=== PATIENT | female | born 1960 | race Caucasian/White ===

== ENCOUNTER 2018-02-10 15:36 | Emergency (ER) | payer SELFPAY ==
[2018-02-10] MEDS ORDERED: ASPIRIN 81 MG CHEW TAB PO ONE (15:43)
--- NOTE | 2018-02-10 15:43 | ED Physician Documentation ---
Chest Pain - HISTORIAN Historian: patient - HPI Stated Complaint: chest pain Chief Complaint: Chest Pain Onset: other (all together feeling bad x 3 weeks ) Timing: still present Duration: waxing, waning Last known Well Date: 01/02/18 Last Known Well Time: 09:00 Last known Well Code/Unknown Code: Unknown Context: emotional upset, activity, exertion Severity: severe Quality: pressure, sharp Chest Pain Radiation: jaw (right jaw ) Chest Pain Signs/Symptoms: nausea, diaphoresis, dizziness, dyspnea, tachypnea, tachycardia, palpitations, weakness Worsened By: movement Relieved By: rest, other (asprin ) Further Comments: yes (she reports starting with "not feeling well" about 3 weeks ago. She states then over the last few hours she felt increasing chest pain and shortness of breath. She states this was aftere walking in [place] so she arrived here for the chest pain. She states she "just doesnt feel right" She is tearful and anxious. She has no other injurries. No fever. She did recently (2 weeks ago ) fly home from another country) - ROS CONST: none GI/: nausea - PAST HX NC risk factors: no pertinent history DVT/PE Risk Factors: other (recent travel ) GI disease: none Lung disease: none Surgeries/Procedures: none Immunizations: UTD Allergies/Adverse Reactions: Allergies Allergy/AdvReac Type Severity Reaction Status Date / Time codeine Allergy Intermediate Vomiting Verified 02/10/18 16:53 - SOCIAL HX Smoking History: non-smoker Alcohol Use: none Drug Use: none - FAMILY HX Family HX: CAD under 55 - REVIEWED ASSESSMENTS Nursing Assessment Reviewed: Yes Vitals Reviewed: Yes Progress - Progress Progress: 1745: notify pt and spouse of results and plan they are aware and agreeable DG ED Results Lab/Radiology - Radiology Radiology Impressions: Examination: Portable chest History: Evaluate lungs. CHEST PAIN IN THE LAST WEEK, WORSENING (Hx) Comparison exam: None provided. Findings: Single view of the chest demonstrates a normal cardiac and mediastinal silhouette. Lung rowland without focal infiltrate. No blunting of the costophrenic margins. Osseous structures are appropriate for age. Impression: No acute pulmonary process. Electronically signed on Feb 10, 2018 4:24:38 PM MULTIPLE DRUM SANDER HELPER by: Topher Domínguez CT CHEST W/ PE PROTOCOL. ELEVATED D-DIMER, CHEST PAIN, SHORTNESS OF BREATH (DICOM Hx) TECHNIQUE: 2.5 mm contiguous axial images of the chest with contrast. Sagittal and coronal reconstructions. FINDINGS: There is enhancing 1 cm nodule in the right lobe of the thyroid gland. Bilateral breast implants are present. There is no hilar or mediastinal mass. No pulmonary emboli are identified. The gallbladder has been removed. Adrenal glands are unremarkable Lung windows show no acute pathology. There is no pleural effusion. Lung rowland are hyperinflated. There is thoracic spondylosis. IMPRESSION: 1 cm enhancing nodule in the right lobe of the thyroid gland Hyperinflated lungs No evidence of acute pulmonary embolism. Electronically signed on Feb 10, 2018 5:25:04 PM MULTIPLE DRUM SANDER HELPER by: Bert Fernandez Chest Pain Physical Exam - EXAM General Appearance: moderate distress EENT: eye inspection normal, no signs of dehydration Neck: nml inspection Respiratory: no resp. distress, chest non-tender, nml breath sounds CVS: reg. rate & rhythm, no murmur, pulses equal Abdomen: soft, normal bowel sounds, no distension, non-tender Skin: warm/dry, normal color Extremities: non-tender, normal range of motion, no evidence of injury, no edema Neuro: oriented X3 Discharge Clincal Impression: Tachycardia Referrals: Primary Doctor,No [Primary Care Provider] - 2 Days Additional Instructions: 1. Follow up with PCP in 2 days 2. Holter on 3. Rest when you body says to rest 4. Call 911 or return to ER for any concerns Condition: Stable Disposition: 01 HOME, SELF-CARE Decision to Admit: NO Date of Decison to Admit: 02/10/18 Decision Time: 18:50
[2018-02-10 16:09] LABS: MEAN CORPUSCULAR HEMOGLOBIN 26.7 pg (28.0-34.0)
[2018-02-10 16:10] LABS: BASOPHILS % 0.5 (0.0-1.5); EOSINOPHILS % 1.5 % (0.0-6.8); MONOCYTES % 8.6 % (0.0-11.0); NEUTROPHILS # 6.2 # k/uL (1.4-7.7)
[2018-02-10 16:21] LABS: eGFR (Non-African) > 60
[2018-02-10] MEDS ORDERED: 0.9 % SODIUM CHLORIDE 1,000 ML IV ONE (16:41)
[2018-02-10 17:10] VITALS: BP 177/92
--- NOTE | 2018-02-11 03:10 | Diagnostic Imaging Report ---
[place] [facility] [id number] [facility] [address] [place], [place]. [address] Report Submission Date: Feb 10, 2018 4:24:38 PM MINE CAR DISPATCHER Patient Study Name: THOMAS GARDNER Date: Feb 10, 2018 3:48:30 PM MINE CAR DISPATCHER Modality Type: DX Gender: F Description: CHEST : 60 Institution: [facility] Physician: [place] Examination: Portable chest History: Evaluate lungs. CHEST PAIN IN THE LAST WEEK, WORSENING (Hx) Comparison exam: None provided. Findings: Single view of the chest demonstrates a normal cardiac and mediastinal silhouette. Lung rowland without focal infiltrate. No blunting of the costophrenic margins. Osseous structures are appropriate for age. Impression: No acute pulmonary process. Electronically signed on Feb 10, 2018 4:24:38 PM MINE CAR DISPATCHER by: Topher RODGERS
--- NOTE | 2018-02-11 03:11 | Diagnostic Imaging Report ---
[place] [facility] [id number] [facility] [address] [place], [place]. [address] Report Submission Date: Feb 10, 2018 5:25:04 PM CLOTHES SEPARATOR Patient Study Name: THOMAS GARDNER Date: Feb 10, 2018 4:54:22 PM CLOTHES SEPARATOR Modality Type: CT\SR Gender: F Description: CT PE CHEST : 60 Institution: [facility] Physician: SCOT SPAIN CT chest with contrast Date of study: February 04, 2018 CLINICAL HISTORY: CT CHEST W/ PE PROTOCOL. ELEVATED D-DIMER, CHEST PAIN, SHORTNESS OF BREATH (Hx) / ITS.REASON Elevated d dimer chest pain shortness of air Note time : 02/10/2018 6:07:26 PM User : Teresa Dunbar CT CHEST W/ PE PROTOCOL. ELEVATED D-DIMER, CHEST PAIN, SHORTNESS OF BREATH (DICOM Hx) TECHNIQUE: 2.5 mm contiguous axial images of the chest with contrast. Sagittal and coronal reconstructions. FINDINGS: There is enhancing 1 cm nodule in the right lobe of the thyroid gland. Bilateral breast implants are present. There is no hilar or mediastinal mass. No pulmonary emboli are identified. The gallbladder has been removed. Adrenal glands are unremarkable Lung windows show no acute pathology. There is no pleural effusion. Lung rowland are hyperinflated. There is thoracic spondylosis. IMPRESSION: 1 cm enhancing nodule in the right lobe of the thyroid gland Hyperinflated lungs No evidence of acute pulmonary embolism. Electronically signed on Feb 10, 2018 5:25:04 PM CLOTHES SEPARATOR by: Bert RODGERS
== END 2018-02-10 18:45 | disposition home or self-care (01) ==
LOC: ED 15:36
DX: R00.0 Tachycardia, unspecified (principal)
CPT/HCPCS: 36415; 71045; 71275; 80053; 84439; 84443; 84481; 84484; 85025; 85379; 93005; 96365; 99283; 99285; J7030; Q9967; S1016

== ENCOUNTER 2018-02-16 12:43 | Outpatient (CLI) | payer SELFPAY ==
--- NOTE | 2018-02-17 06:31 | Diagnostic Imaging Report ---
[place] [facility] [address] [facility] [address] Report Submission Date: Feb 16, 2018 6:17:44 PM SALES REVIEW CLERK Patient Study Name: THOMAS GARDNER Date: Feb 16, 2018 12:54:32 PM SALES REVIEW CLERK Modality Type: US Gender: F Description: US THYROID : 60 Institution: [facility] Physician: [place] Thyroid ultrasound History: Weight loss. Tachycardia and anxiousness Transverse and longitudinal images were obtained through the thyroid gland. There are no comparison studies. Transverse and longitudinal images were obtained through the thyroid gland. The thyroid isthmus is not thickened measuring 4 mm. The right thyroid lobe measures 3.5 x 2.3 x 1.2 cm in greatest dimension. The left thyroid lobe measures 3.1 x 1.8 x 0.9 cm in greatest dimension. Superiorly of the left thyroid lobe, there is a predominantly solid 9 x 6 x 6 mm nodule. At the midpole on the right, there is a predominantly solid nodule measuring 1.3 x 1.1 x 1.1 cm in greatest dimension. This nodule is echogenic. There is mild blood flow to this nodule. Impression: Predominantly solid nodules bilaterally, larger on the right than left. Depending upon the clinical scenario, either short interval follow-up ultrasound or FNA could be obtained with regard to the larger solid nodule of the right thyroid lobe. Electronically signed on Feb 16, 2018 6:17:44 PM SALES REVIEW CLERK by: Silvina RODGERS
== END 2018-02-16 12:50 ==
LOC: RAD 12:43
PROVIDERS: ATTEND Nurse Practitioner Family
DX: E04.2 Nontoxic multinodular goiter (principal); E05.90 Thyrotoxicosis, unspecified without thyrotoxic crisis or storm
CPT/HCPCS: 76536